=== PATIENT | female | born 1960 | race African-American/Black ===

== ENCOUNTER 2017-10-19 14:36 | Emergency (ER) | payer SELFPAY ==
[~2017-10-19] VITALS: Ht 157.5 cm; Wt 73.0 kg
[2017-10-19] MEDS ORDERED: TRAZ-132 PO (15:22)
[2017-10-19] MEDS ORDERED: ALBUTEROL (0.5%) 2.5MG/0.5ML NEB HHN ONE (15:45)
[2017-10-19] MEDS ORDERED: ACETAMINOPHEN 325MG TABLET PO ONE (15:45)
[2017-10-19] MEDS ORDERED: LORAZEPAM 1MG TABLET PO ONE (16:00)
[2017-10-19 19:12] LABS: BASOPHILS % 0.4 % (0.0-2.0); EOSINOPHILS % 2.7 % (0.0-5.0); HEMATOCRIT. 29.2 % (36.0-48.0); HEMOGLOBIN. 9.7 g/dL (12.0-16.0); MEAN CORPUSCULAR HEMOGLOBIN 27.3 pg (28.0-32.0); MEAN CORPUSCULAR VOLUME 82.4 fL (81.0-99.0); MEAN PLATELET VOLUME 8.5 fl (7.4-10.4); MONOCYTES % 6.5 % (2.0-8.0); NEUTROPHILS % 54.4 % (40.0-76.0); PLATELET 168 x1000/uL (130-400); RED BLOOD CELL COUNT 3.55 mill/uL (4.2-5.4); RED CELL DISTRIBUTION WIDTH 14.9 % (11.6-14.6)
[2017-10-19 20:40] VITALS: BP 128/80
== END 2017-10-19 20:44 | disposition home or self-care (01) ==
LOC: ER 14:36
DX: S16.1XXA Strain of muscle, fascia and tendon at neck level, initial encounter (principal); R06.02 Shortness of breath; V43.52XA Car driver injured in collision with other type car in traffic accident, initial encounter; Y93.89 Activity, other specified; Y99.8 Other external cause status; Y92.410 Unspecified street and highway as the place of occurrence of the external cause; Z98.890 Other specified postprocedural states
CPT/HCPCS: 36415; 71020; 72040; 84484; 85025; 93005; 94640; 99285; J7611

== ENCOUNTER 2020-10-15 07:13 | Emergency (ER) | payer OTHER ==
[~2020-10-15] VITALS: Ht 162.6 cm; Wt 80.0 kg
[~2020-10-15 07:13] MED LIST: TRAZ-252 PO
[2020-10-15] MEDS ORDERED: ASPIRIN 81MG TABLET PO ONE (07:45)
[2020-10-15 08:39] LABS: BASOPHILS % 0.4 % (0.0-2.0); EOSINOPHILS % 2.4 % (0.0-5.0); HEMATOCRIT. 40.8 % (36.0-48.0); HEMOGLOBIN. 13.1 g/dL (12.0-16.0); LYMPHOCYTES % 36.2 % (20.0-50.0); MEAN CORPUSCULAR HEMOGLOBIN 26.6 pg (28.0-32.0); MEAN CORPUSCULAR VOLUME 83.1 fL (81.0-99.0); MEAN PLATELET VOLUME 9.1 fl (7.4-10.4); MONOCYTES % 9.6 % (2.0-8.0); NEUTROPHILS % 51.4 % (40.0-76.0); PLATELET 145 x1000/uL (130-400); RED BLOOD CELL COUNT 4.91 mill/uL (4.2-5.4); RED CELL DISTRIBUTION WIDTH 14.3 % (11.6-14.6)
[2020-10-15 08:40] LABS: CHLORIDE 106 mEq/L (98-107)
[2020-10-15 10:13] VITALS: BP 150/78
== END 2020-10-15 10:14 | disposition home or self-care (01) ==
LOC: ER 07:22
DX: R07.89 Other chest pain (principal); Z98.890 Other specified postprocedural states
CPT/HCPCS: 36415; 71045; 80053; 83880; 84484; 85025; 93005; 99285; Z7610